=== PATIENT | male | born 1990 | race American Indian/Alaskan Native ===

== ENCOUNTER 2018-12-11 00:16 | Emergency (ER) | payer OTHER, MEDICAID ==
[2018-12-11 00:30] VITALS: BP 134/75; PULSE 64; RESP 20; TEMP 98.5; O2SAT 100
--- NOTE | 2018-12-11 01:24 | C.PDOC ---
History Of Present Illness 28 y/o male comes to ed to check left foot, sts he dropped a cinderblock on it. Time Seen by Provider: 12/11/18 00:38 Chief Complaint (Nursing): Lower Extremity Problem/Injury History Per: Patient History/Exam Limitations: no limitations Onset/Duration Of Symptoms: Hrs (1) Current Symptoms Are (Timing): Still Present Severity: Moderate - Ankle/Foot Description Of Injury: Struck With Object Past Medical History Reviewed: Historical Data, Nursing Documentation, Vital Signs Vital Signs: Last Vital Signs Temp 98.5 F 12/11/18 00:28 Pulse 64 12/11/18 00:28 Resp 20 12/11/18 00:28 BP 134/75 12/11/18 00:28 Pulse Ox 100 12/11/18 00:28 Primary Care Provider: FAMILY PROVIDER,NO - Medical History PMH: No Chronic Diseases Family History: States: Unknown Family Hx - Social History Hx Alcohol Use: No Hx Substance Use: No Review Of Systems Musculoskeletal: Positive for: Foot Pain Skin: Negative for: Bruising Neurological: Negative for: Weakness, Numbness Physical Exam - Physical Exam Appears: Non-toxic, No Acute Distress Skin: Warm, Dry Extremity: Normal ROM, Tenderness (dorsum left foot), Capillary Refill <2 Sec, No Swelling, Other (left toes, ankle, and knee with full rom, non tender) Pulses: Left Dorsalis Pedis: Normal Neurological/Psych: Oriented x3, Normal Speech, Normal Cognition, Normal Motor, Normal Sensation ED Course And Treatment O2 Sat by Pulse Oximetry: 100 Medical Decision Making Medical Decision Making: wet read xray neg. pt ambulates with no difficulty. d/c with nsaids and podiatry f/u Disposition Counseled Patient/Family Regarding: Studies Performed, Diagnosis, Need For Followup, Rx Given - Disposition Referrals: [facility] [Outside] Podiatry Clinic [Outside] Disposition: HOME/ ROUTINE Disposition Time: :29 Condition: GOOD Additional Instructions: Ibuprofen for pain; follow up with podiatry clinic at [facility], [place] or [place] of pain persists after a few days; Cold compresses to foot over a cloth a few times a day; . Prescriptions: Ibuprofen [Motrin] 600 mg PO TID #30 tab Instructions: Contusion (DC) Forms: [employer] (Mexican), General Discharge Instructions - Clinical Impression Clinical Impression: Contusion of left foot, initial encounter
--- NOTE | 2018-12-11 13:50 | RAD ---
Left foot three views HISTORY: Injury. COMPARISON: None available. FINDINGS: No evidence of acute displaced fracture or dislocation. Impression: Negative acute. If pain persists, consider MRI.
== END 2018-12-11 01:47 | disposition home or self-care (01) ==
LOC: C.ER 00:16
DX: S90.32XA Contusion of left foot, initial encounter (principal); W22.8XXA Striking against or struck by other objects, initial encounter; Y92.69 Other specified industrial and construction area as the place of occurrence of the external cause; Y99.0 Civilian activity done for income or pay